=== PATIENT | female | born 1980 | race Caucasian/White ===

== ENCOUNTER 2019-02-02 11:50 | Emergency (ER) | payer BC ==
[2019-02-02 12:12] VITALS: BP 133/87
--- NOTE | 2019-02-02 12:15 | UC ---
Respiratory Complaint HPI - HPI Summary HPI Summary: 38 year old female with no PMH presents with dry mainly non-productive cough x 2 weeks. denies fever, chills, N/V/C/D/GI symptoms, no ear, throat pain. Patient was seen by PCP last week, given 5 days 40mg steroids. Cough improved , but returned. otherwise feeling well, does have 3 month old at home. + post -nasal drip - History of Current Complaint Chief Complaint: UCGeneralIllness Stated Complaint: COUGH Time Seen by Provider: 02/02/19 12:12 Hx Obtained From: Patient Hx Last Menstrual Period: 01/12/19 ?: No Onset/Duration: Sudden Onset Timing: Constant Severity Currently: None Pain Intensity: 0 Pain Scale Used: 0-10 Numeric Character: Cough: Nonproductive Aggravating Factors: Deep Breaths, Recumbent Position Associated Signs And Symptoms: Negative: Fever, Chills, Wheezing, Hemoptysis, Nasal Congestion, Sinus Discomfort - Allergies/Home Medications Allergies/Adverse Reactions: Allergies Allergy/AdvReac Type Severity Reaction Status Date / Time No Known Allergies Allergy Verified 02/02/19 12:12 Home Medications: Home Medications Labetalol TAB* [Trandate TAB*] 10 mg PO BID 02/02/19 [History Confirmed 02/02/19 ] PMH/Surg Hx/FS Hx/Imm Hx Previously Healthy: Yes - Surgical History Surgical History: Yes Surgery Procedure, Year, and Place: Right ACL Replacement, 2000, [facility], c- section 09/2018 - Family History Known Family History: Positive: Non-Contributory - Social History Occupation: Employed Full-time Alcohol Use: None Substance Use Type: None Smoking Status (MU): Never Smoked Tobacco - Immunization History Most Recent Tetanus Shot: few years ago Review of Systems All Other Systems Reviewed And Are Negative: Yes Constitutional: Negative: Fever, Chills, Fatigue ENT: Negative: Sore Throat, Ear Ache, Nasal Discharge, Sinus Congestion, Sinus Pain/Tenderness Respiratory: Positive: Shortness Of Breath - with coughing, none at rest, Cough Neurological: Positive: Negative Psychological: Positive: Negative Is Patient Immunocompromised?: No Physical Exam Triage Information Reviewed: Yes Appearance: Well-Appearing, No Pain Distress, Well-Nourished Vital Signs: Initial Vital Signs Temp 99.4 F 02/02/19 12:06 Pulse 89 02/02/19 12:06 Resp 16 02/02/19 12:06 BP 133/87 02/02/19 12:06 Pulse Ox 100 02/02/19 12:06 Vital Signs Reviewed: Yes Eyes: Positive: Conjunctiva Clear ENT: Positive: Normal ENT inspection, Pharynx normal, TMs normal, Uvula midline. Negative: TM bulging, TM dull, TM red, Tonsillar swelling, Tonsillar exudate, Sinus tenderness Neck: Positive: Supple, Nontender, No Lymphadenopathy. Negative: Nuchal Rigidity, Enlarged Nodes @ Respiratory: Positive: Chest non-tender, Lungs clear, Normal breath sounds, No respiratory distress, No accessory muscle use. Negative: Respiratory distress, Decreased breath sounds, Crackles, Rhonchi, Stridor Cardiovascular: Positive: RRR, No Murmur Musculoskeletal Exam: Normal Neurological Exam: Normal Skin Exam: Normal Respiratory Course/Dx - Course Course Of Treatment: Acute Bronchitis: - Prednisone taper as directed - Increase fluids - Over the counter medications to help with symptoms such as Claritin to dry up post-nasal drip during day - Humidifier at night to help with cough - COugh drops/ throat lozenges to help with symptoms, keep mucous membranes moist to prevent coughing - Follow up with primary physician within 2-3 days if no improvement - Go to ER with increased pain, shortness of breath, neck stiffness, fever > 102 - Differential Dx/Diagnosis Differential Diagnosis/HQI/PQRI: Asthma, Bronchitis, Sinusitis Provider Diagnosis: Acute bronchitis Discharge ED - Sign-Out/Discharge Documenting (check all that apply): Patient Departure All imaging exams completed and their final reports reviewed: No Studies - Discharge Plan Condition: Good Disposition: HOME Prescriptions: Albuterol HFA INHALER* [Ventolin HFA Inhaler*] 1 - 2 puff INH Q4H PRN #1 mdi PRN Reason: shortness of breath, cough predniSONE TAB* [Deltasone 10 MG TAB*] 10 mg PO .SEE TAP #12 tab Patient Education Materials: Acute Bronchitis (ED) Referrals: Ingrid Conroy PA [Primary Care Provider] - Additional Instructions: Acute Bronchitis: - Prednisone taper as directed - Increase fluids - Over the counter medications to help with symptoms such as Claritin to dry up post-nasal drip during day - Humidifier at night to help with cough - COugh drops/ throat lozenges to help with symptoms, keep mucous membranes moist to prevent coughing - Follow up with primary physician within 2-3 days if no improvement - Go to ER with increased pain, shortness of breath, neck stiffness, fever > 102 - ALbuterol as needed for cough, shortness of breath every 4 hours - Billing Disposition and Condition Condition: GOOD Disposition: Home
== END 2019-02-02 12:42 | disposition home or self-care (01) ==
LOC: UCCORT 11:50
DX: J20.9 Acute bronchitis, unspecified (principal)
CPT/HCPCS: 99212; G0463